=== PATIENT | female | born 1960 | race Caucasian/White ===

== ENCOUNTER 2017-12-29 12:09 | Emergency (ER) | payer OTHER ==
[~2017-12-29] VITALS: Ht 170.2 cm; Wt 56.7 kg
[~2017-12-29 12:09] MED LIST: ALPRAZOLAM0.5 MG PO; BETAPACE80 MG PO; KLONOPIN0.5 MG PO; VIVELLE-DOT1 EAC1 TOP; ZOFRAN ODT4 MG SL
--- OUTSIDE RECORDS SUMMARY | 2017-12-29 12:11 | XMS REPORT ---
Author Author [facility] Address Unknown Phone Unavailable Care Team Providers Care Operator Lights Name Role Phone FADI STILES Unavailable Unavailable Problems This patient has no known problems. Allergies, Adverse Reactions, Alerts This patient has no known allergies or adverse reactions. Medications This patient has no known medications. Results Test Description Test Time Test Comments Text Results Atomic Results Result Comments MAMMOGRAPHY DIGITAL SCR BILAT [place] [address] Patient Name: CHOCO EARLY MR #: [id number] : 1960 Age/Sex: 57/F Req #: [id number] [facility] Physician: Ordered by: FADI STILES MD Report #: [id number] Location: MAMMO Room/Bed: Procedure: MG/MAMMOGRAPHY DIGITAL SCR BILAT Exam Date: 05/08/17 Exam Time: 0946 REPORT STATUS: Signed # [id number] - MGSCRBIL #BILATERAL DIGITAL SCREENING MAMMOGRAM WITH CAD: 2016 Comparison is made to exams dated: 04/06/2016 mammogram, 12/25/2012 mammogram, 12/13/2011 mammogram and 12/06/2011 mammogram - [facility]. Current study contains 4 films. The tissue of both breasts is heterogeneously dense. This may lower the sensitivity of mammography. Current study was also evaluated with a Computer Aided Detection (CAD) system. There are benign calcifications in both breasts. There also is a biopsy clip in the left breast. There is also a scar marker on the left breast. No significant masses, calcifications, or other findings are seen in either breast. There has been no significant interval change. IMPRESSION: BENIGN There is no mammographic evidence of malignancy. A 1 year screening mammogram is recommended. The patient will be notified by letter of the results. Silvana Carrero Jr., D.O. cw/:05/15/2017 08:02:06 Manager Vehicle: Mandy ARTIS(Trey)(M), [facility] letter sent: Compared to Prior B9 Mammogram BI-RADS: 2 Benign Dictated By: SILVANA CARRERO DO 1 COPY TO: FADI STILES MD
== END 2017-12-29 13:13 | disposition home or self-care (01) ==
LOC: FSED 12:09
DX: R10.2 Pelvic and perineal pain (principal); F41.1 Generalized anxiety disorder
CPT/HCPCS: 80048; 99284

== ENCOUNTER → 2018-04-30 | Outpatient (CLI) | payer OTHER | LOC: MAMMO 08:48 | PROVIDERS: ATTEND Obstetrics & Gynecology | DX: Z12.31 Encounter for screening mammogram for malignant neoplasm of breast (principal) | CPT/HCPCS: 77067 ==

== ENCOUNTER → 2018-05-27 | Outpatient (CLI) | payer OTHER ==
--- NOTE | 2018-05-28 09:34 | Diagnostic Imaging Report ---
#[id number] - MGDXLT #UNILATERAL LEFT DIGITAL DIAGNOSTIC MAMMOGRAM WITH SPOT COMPRESSION: 05/27/2018 Comparison is made to exams dated: 04/30/2018 mammogram and 05/08/2017 mammogram - [facility]. Current study contains 3 films. The tissue of the left breast is heterogeneously dense. This may lower the sensitivity of mammography. No significant masses, calcifications, or other findings are seen in the breast. Marker clip and benign calcification again noted. No abnormal density or mass. There has been no significant interval change. IMPRESSION: BENIGN There is no mammographic evidence of malignancy. A 1 year screening mammogram is recommended. The patient will be notified by letter of the results. Joseph Carrero Jr., D.O. cw/:05/27/2018 14:18:58 Route Sales Delivery Driver: Mandy LEONARD)(M), [facility] letter sent: Normal Exam Mammogram BI-RADS: 2 Benign
== END ==
LOC: MAMMO 08:07
PROVIDERS: ATTEND Obstetrics & Gynecology
DX: R92.8 Other abnormal and inconclusive findings on diagnostic imaging of breast (principal)

== ENCOUNTER → 2019-05-06 | Outpatient (CLI) | payer OTHER ==
--- NOTE | 2019-05-13 09:13 | Diagnostic Imaging Report ---
#[id number] - MGSCRBIL #BILATERAL DIGITAL SCREENING MAMMOGRAM WITH CAD: 05/06/2019 CLINICAL: Routine screening. Comparison is made to exams dated: 05/27/2018 mammogram, 04/30/2018 mammogram and 05/08/2017 mammogram - [facility]. Current study contains 5 films. The tissue of both breasts is heterogeneously dense. This may lower the sensitivity of mammography. Current study was also evaluated with a Computer Aided Detection (CAD) system. There are benign calcifications in both breasts. There also is a biopsy clip in the left breast. There is also a scar marker on the left breast. No significant masses, calcifications, or other findings are seen in either breast. IMPRESSION: BENIGN There is no mammographic evidence of malignancy. A 1 year screening mammogram is recommended. The patient will be notified by letter of the results. ELIANA HAAS M.D. ct/penrad:05/12/2019 18:11:44 Web Analytics Specialist: Mandy ARTIS(R)(Brielle), [facility] letter sent: Normal Exam Mammogram BI-RADS: 2 Benign
== END ==
LOC: MAMMO 13:02
PROVIDERS: ATTEND Obstetrics & Gynecology
DX: Z12.31 Encounter for screening mammogram for malignant neoplasm of breast (principal)
CPT/HCPCS: 77067

== ENCOUNTER → 2019-05-14 | Outpatient (CLI) | payer OTHER ==
--- NOTE | 2019-05-15 08:40 | Diagnostic Imaging Report ---
Bone density study Clinical History: Osteoporosis screening Bone mineral density measurement Lumbar spine 1.080 gm/cm2 Femoral neck 0 point a 2 to gm/cm2 Standard deviation from young adult population (T-score) Lumbar spine 0.3 Femoral neck -0.2 Standard deviation for age adjusted population (Z-score) Lumbar spine 1.5 Femoral neck 0.9 Comments: The alignment of lumbar spine and femoral necks are satisfactory. There is no osteoporosis or osteopenia of the lumbar spine and left femoral neck. Complete computer analysis will be sent shortly. Diagnostic criteria for osteoporosis BMD: Bone mineral density Normal: BMD measurement less than one standard deviation from young adult population Osteopenia: BMD measurement between 1 and 2.5 standard deviations Osteoporosis: BMD measurement greater than 2.5 standard deviations Severe osteoporosis: Osteoporosis and one or more fragility fractures Signed by: Dr. David Salazar MD on 05/15/2019 8:37 AM
== END ==
LOC: DX 10:10
PROVIDERS: ATTEND Obstetrics & Gynecology
DX: Z01.419 Encounter for gynecological examination (general) (routine) without abnormal findings (principal)
CPT/HCPCS: 77080

== ENCOUNTER → 2020-05-23 | Outpatient (CLI) | payer OTHER | LOC: MAMMO 13:24 | PROVIDERS: ATTEND Obstetrics & Gynecology | DX: Z12.31 Encounter for screening mammogram for malignant neoplasm of breast (principal) | CPT/HCPCS: 77067 ==

== ENCOUNTER 2020-05-26 13:18 | Emergency (ER) | payer OTHER ==
[~2020-05-26] VITALS: Ht 170.2 cm; Wt 56.7 kg
[2020-05-26] MEDS ORDERED: SODIUM CHLORIDE 0.9% 1000ML 1,000 ML IV STA (13:44)
--- NOTE | 2020-05-26 14:10 | NUR ---
Pt states unhappy with covid swab, whines,"bia." Pt again states unhappy with strep swab, unhappy with flu swabs. All swabs were throughly explained to pt before, during and re educated after collection. Pt was offered warm blanket on arrival and declined; however with ivf, pt request blankets, pt given multiple warm blankets for comfort. Pt also unhappy with iv placement. pt states, "only if you're good you'll be able to get it." [place] to rt upper arm, iv site cleaned and iv placed in one stick straight in without any difficulty or need for repositioning. Pt states again she was unpleased. pt and spouse updated of time frame of testing and expectations from rn. pt and spouse with flat affects and no responses to any information...
[2020-05-26] MEDS ORDERED: SODIUM CHLORIDE 0.9% 1000ML 1,000 ML ONE (14:12)
--- NOTE | 2020-05-26 14:48 | NUR ---
PT POSITIVE FLU B. UPDATED PT AND SPOUSE. SPOUSE CORGIAL AND SPOKE, PT CONTINUED WITH FLAT AFFECT AND DID NOT SPEAK. SERVICE RECOVERY DONE WITHOUT PT DISPOSITION IMPROVEMENT. PT D/C PER MD ORDERS WITH FLU
--- NOTE | 2020-05-26 14:48 | Emergency Department Note ---
History of Present Illnes History of Present Illness Chief Complaint: General Medicine Complaints History of Present Illness This is a 60 year old female Chief Complaint Comment 5 days of weak, flat affect, aaox4. ambulatory. no s/s acute distress. pt moans and whines with speech. pt states, "maybe i should be at a hospital." pt reassured this is a full functioning er. . Historian: Patient, Family Member Arrival Mode: Car Onset (how long ago): day(s) (2) Location: all over Quality: myalgia Radiation: Denies non-radiation, Denies back, Denies neck, Denies extremity, Denies abdomen, Denies periumbilical, Denies flank, Denies proximal, Denies distal, Denies other Severity: moderate Onset quality: gradual Duration (how long): day(s) (1) Timing of current episode: constant Progression: unchanged Chronicity: new Context: Denies recent illness, Denies recent surgery, Denies recent immobilization, Denies recent travel, Denies trauma/injury, Denies new medications, Denies hx of DVT/PE, Denies non-compliance w/ medications, Denies other Relieving factors: none Exacerbating factors: none Associated symptoms: Reports malaise; Denies denies other symptoms, Denies confusion, Denies chest pain, Denies cough, Denies diaphoresis, Denies fever/chills, Denies headaches, Denies loss of appetite, Denies nausea/vomiting, Denies rash, Denies seizure, Denies shortness of breath, Denies syncope, Denies weakness, Denies other Past Medical/Family History Physician Review I have reviewed the patient's past medical and family history. Any updates have been documented here. Past Medical History Recent Fever: No Clinical Suspicion of Infectio: No New/Unexplained Change in Ment: No Past Medical History: Anxiety, Depression, Chronic Back Pain Other Medical History: non specific tachycardia Past Surgical History: Hysterectomy, Lumpectomy Other Surgery: lump ectomy Social History Smoking Cessation: Never Smoker Counseling Performed: No Alcohol Use: None Any Illegal Drug Use: No Other Last Tetanus: unknown Any Pre-Existing Lines (PICC,: No Review of Systems Review of Systems Constitutional: Reports no symptoms EENTM: Reports no symptoms Cardiovascular: Reports no symptoms Respiratory: Reports as per HPI Gastrointestinal: Reports no symptoms Genitourinary: Reports no symptoms Musculoskeletal: Reports no symptoms Integumentary: Reports no symptoms Neurological: Reports as per HPI Psychological: Reports no symptoms Endocrine: Reports no symptoms Hematological/Lymphatic: Reports no symptoms Physical Exam Related Data Allergies: Coded Allergies: lorazepam (Verified Adverse Reaction, Intermediate, CAUSES MORE ANXIETY, 04/04/17) caffeine (Verified Adverse Reaction, Unknown, heart palpitations, 04/04/17) Triage Vital Signs Vital Signs Date Time Temp Pulse Resp B/P (MAP) Pulse Ox O2 Delivery O2 Flow Rate FiO2 05/26/20 13:52 97.5 65 14 154/79 100 Room Air Vital signs reviewed: Yes Physical Exam CONSTITUTIONAL Constitutional: Present well-developed, Present well-nourished HENT HENT: Present normocephalic, Present atraumatic, Present oropharynx clear/moist, Present nose normal, Present erythema HENT L/R: Present left ext ear normal, Present right ext ear normal EYES Eyes: Reports PERRL, Reports conjunctivae normal NECK Neck: Present ROM normal PULMONARY Pulmonary: Present effort normal, Present breath sounds normal CARDIOVASCULAR Cardiovascular: Present regular rhythm, Present heart sounds normal, Present capillary refill normal, Present normal rate GASTROINTESTINAL Abdominal: Present soft, Present nontender, Present bowel sounds normal GENITOURINARY Genitourinary: Present exam deferred SKIN Skin: Present warm, Present dry MUSCULOSKELETAL Musculoskeletal: Present ROM normal NEUROLOGICAL Neurological: Present alert, Present oriented x 3, Present no gross motor or sensory deficits PSYCHOLOGICAL Psychological: Present mood/affect normal, Present judgement normal Results Laboratory Lab results reviewed: Yes Imaging Imaging results reviewed: Yes Assessment & Plan Medical Decision Making MDM STREP FLU Reassessment Reassessment time: 14:47 Reassessment BETTER Assessment & Plan Final Impression: (1) Flu (2) Weakness (3) Anxiety Depart Disposition: HOME, SELF-CARE Last Vital Signs Date Time Temp Pulse Resp B/P (MAP) Pulse Ox O2 Delivery O2 Flow Rate FiO2 05/26/20 13:52 97.5 65 14 154/79 100 Room Air Home Meds Reported Medications Clonazepam (KLONOPIN) 0.5 Mg Tablet, 0.5 MG PO Q8H PRN for ANXIETY 12/11/14 Ondansetron (ZOFRAN ODT) 4 Mg Tab.rapdis, 4 MG SL Q6H PRN for NAUSEA, TAB 4/11/15 Estradiol (VIVELLE-DOT) 1 Each Patch.tdsw, 1 TOP EVERY 4 DAYS 07/22/13 Sotalol Hcl (BETAPACE) 80 Mg Tablet, 40 MG PO BID 07/22/13 Medications in the ED Sodium Chloride 1,000 ml @ 0 mls/hr Q0M STAT IV Last administered on 05/26/20at 14:10; Admin Dose 1,000 MLS/HR; Start 05/26/20 at 13:44; Stop 05/26/20 at 13:47; Status DC Sodium Chloride 1,000 ml @ STK-MED ONCE .ROUTE ; Start 05/26/20 at 14:12; Stop 05/26/20 at 14:08; Status DC HAMIDA SOTO MD May 26, 2020 14:48
--- NOTE | 2020-05-26 19:15 | Diagnostic Imaging Report ---
TECHNIQUE: Frontal view of the chest. INDICATION: ^DYSPNEA ^[id number] ^[id number] COMPARISON: None DISCUSSION: Limited evaluation due to portable technique. Lines and hardware: None Heart and mediastinum: Within normal limits. Lungs and pleura: No focal airspace consolidation. No pleural effusion. No pneumothorax. Soft tissues and bones: No acute abnormality. IMPRESSION: Negative for acute intrathoracic process. Signed by: Thierry Shirley MD on 05/26/2020 2:11 PM
== END 2020-05-26 14:49 | disposition home or self-care (01) ==
LOC: FSED 13:46
DX: J11.1 Influenza due to unidentified influenza virus with other respiratory manifestations (principal); R53.1 Weakness; F41.9 Anxiety disorder, unspecified; M54.9 Dorsalgia, unspecified; G89.29 Other chronic pain
CPT/HCPCS: 71045; 80048; 80076; 81003; 83518; 85025; 87400; 99284; J7030; U0002

== ENCOUNTER → 2020-06-15 | Outpatient (CLI) | payer OTHER ==
--- NOTE | 2020-06-16 08:25 | Diagnostic Imaging Report ---
#[id number] - USBRECOMLT ULTRASOUND OF THE LEFT BREAST : 06/15/2020 Comparison is made to exams dated: 05/23/2020 mammogram, 05/06/2019 mammogram, 05/27/2018 mammogram and 04/30/2018 mammogram - [facility]. Color flow and real-time ultrasound were performed on the left breast. There is a benign 1.4 cm previously biopsied mass in the left breast at 3 o'clock middle depth. This lobulated mass is hypoechoic. This abnormality is not significantly changed. No abnormalities were seen sonographically in the left axilla. There are no new solid or cystic masses identified. IMPRESSION: BENIGN There is no sonographic evidence of malignancy. The 1.4 cm lobulated mass in the left breast is benign. A 1 year screening mammogram is recommended. ELIANA HAAS M.D. ct/:06/15/2020 12:10:02 Gut Dropper: Negin Yip [facility], [facility] letter sent: Normal Exam Ultrasound BI-RADS: 2 Benign
--- NOTE | 2020-06-16 08:25 | Diagnostic Imaging Report ---
#[id number] [facility] : 06/15/2020 Comparison is made to exam dated: 05/23/2020 mammogram - [facility]. Color flow and real-time ultrasound were performed on the right breast. No abnormalities were seen sonographically in the right axilla. There are no solid or cystic masses identified. IMPRESSION: BENIGN There is no sonographic evidence of malignancy. A 1 year screening mammogram is recommended. ELIANA HAAS M.D. ct/penrad:06/15/2020 12:07:42 Rotary Pump Operator: Negin Yip [facility], [facility] letter sent: Normal Exam Ultrasound BI-RADS: 2 Benign
== END ==
LOC: US 07:48
PROVIDERS: ATTEND Obstetrics & Gynecology
DX: R92.2 Inconclusive mammogram (principal)

== ENCOUNTER → 2021-06-05 | Outpatient (CLI) | payer OTHER | LOC: MAMMO 09:10 | PROVIDERS: ATTEND Obstetrics & Gynecology | DX: Z12.31 Encounter for screening mammogram for malignant neoplasm of breast (principal) | CPT/HCPCS: 77067 ==

== ENCOUNTER → 2022-06-05 | Outpatient (CLI) | payer OTHER | LOC: MAMMO 09:35 | PROVIDERS: ATTEND Obstetrics & Gynecology | DX: Z12.31 Encounter for screening mammogram for malignant neoplasm of breast (principal); Z13.820 Encounter for screening for osteoporosis | CPT/HCPCS: 77067; 77080 ==

== ENCOUNTER 2023-01-30 09:57 | Emergency (ER) | payer OTHER ==
[~2023-01-30] VITALS: Ht 170.2 cm; Wt 58.1 kg
[2023-01-30 12:17] VITALS: O2SAT 97
[2023-01-30] MEDS ORDERED: ONDANSETRON ODT4 MG PO (12:21)
== END 2023-01-30 12:31 | disposition home or self-care (01) ==
LOC: FSED 10:03
DX: R31.9 Hematuria, unspecified (principal); N13.2 Hydronephrosis with renal and ureteral calculous obstruction; F41.9 Anxiety disorder, unspecified; M54.9 Dorsalgia, unspecified; G89.29 Other chronic pain
CPT/HCPCS: 74176; 80048; 80076; 81003; 85025; 99284

== ENCOUNTER → 2024-06-22 | Outpatient (REF) | payer OTHER ==
[~2024-06-22] MED LIST changes: +LEVSIN-SL0.125 MG SL; +MUCINEX600 MG PO; +ONDANSETRON ODT4 MG PO
== END ==
LOC: MAMMO 10:37
PROVIDERS: ATTEND Obstetrics & Gynecology
DX: Z12.31 Encounter for screening mammogram for malignant neoplasm of breast (principal)
CPT/HCPCS: 77067

== ENCOUNTER → 2024-07-29 | Outpatient (REF) | payer OTHER | LOC: US 09:15 | PROVIDERS: ATTEND Obstetrics & Gynecology | DX: R92.2 Inconclusive mammogram (principal) ==

== ENCOUNTER → 2025-02-03 | Day surgery (SDC) | payer OTHER ==
[2025-01-28 10:35] LABS: BASOPHILS % 0.3 % (0.0-1.0); HEMATOCRIT 42.1 % (34.2-44.1); HEMOGLOBIN 14.2 g/dL (12.0-16.0); LYMPHOCYTES # (AUTO) 1.7 (1.0-3.2); LYMPHOCYTES % 43.2 % (18.0-39.1); MEAN CORPUSCULAR HEMOGLOBIN 30.7 pg (28-32); MEAN CORPUSCULAR HGB CONC 33.7 g/dL (31-35); MEAN CORPUSCULAR VOLUME 91.1 fL (81-99); MONOCYTES # (AUTO) 0.4 (0.2-0.8); MONOCYTES % 8.8 % (4.4-11.3); NEUTROPHILS # (AUTO) 1.9 (2.1-6.9); NEUTROPHILS % 47.4 % (38.7-80.0); PLATELET COUNT 206 x10e3/uL (140-360); RED BLOOD COUNT 4.62 x10e6/uL (3.6-5.1); WHITE BLOOD COUNT 3.98 x10e3/uL (4.8-10.8)
[~2025-02-03] MED LIST changes: +DEXAMETHASONE SOD PHOS INJ 4 MG/ML SDV ONE; +EPHEDRINE SULFATE INJ 50 MG/ML VIAL ONE; +FENTANYL CITRATE/PF 100MCG/2 ML INJ ONE; +FLUMAZENIL 0.5MG/ 5ML VIAL ONE; +LIDOCAINE HCL 2% LOCAL INJ 5 ML SDV VIAL INJ ONE; +MIDAZOLAM HCL 2 MG/2 ML VIAL ONE; +ONDANSETRON HCL INJ 2MG/ML 2ML 2 MG/ML VIAL ONE; +PROPOFOL IV EMULSION 10 MG/ML 20 ML VIAL ONE; +SCOPOLAMINE 1 MG PATCH ONE; +VIT D3 PO
[2025-02-03] MEDS: SODIUM CHLORIDE 0.9% 1000ML 1,000 ML ONE (07:08)
[2025-02-03] MEDS: CEFTRIAXONE 1 GM VIAL ONE (07:09)
[2025-02-03 08:00] VITALS: TEMP 97.3
[2025-02-03 09:05] VITALS: BP 140/75; PULSE 54; RESP 18; O2SAT 100
== END | disposition home or self-care (01) ==
LOC: OR 05:54
PROVIDERS: ATTEND Urology
DX: N20.0 Calculus of kidney (principal); R31.29 Other microscopic hematuria; N35.92 Unspecified urethral stricture, female
CPT/HCPCS: 36415; 52353; 74018; 85025; C1758; J0696; J1100; J2003; J2250; J2405; J2704; J3010; J7030; 50590

== ENCOUNTER → 2025-05-20 | Outpatient (REF) | payer OTHER ==
[~2025-05-20] MED LIST changes: -DEXAMETHASONE SOD PHOS INJ 4 MG/ML SDV ONE; -EPHEDRINE SULFATE INJ 50 MG/ML VIAL ONE; -FENTANYL CITRATE/PF 100MCG/2 ML INJ ONE; -FLUMAZENIL 0.5MG/ 5ML VIAL ONE; -LIDOCAINE HCL 2% LOCAL INJ 5 ML SDV VIAL INJ ONE; -MIDAZOLAM HCL 2 MG/2 ML VIAL ONE; -ONDANSETRON HCL INJ 2MG/ML 2ML 2 MG/ML VIAL ONE; -PROPOFOL IV EMULSION 10 MG/ML 20 ML VIAL ONE; -SCOPOLAMINE 1 MG PATCH ONE
== END ==
LOC: RAD 08:36
PROVIDERS: ATTEND Urology
DX: N20.0 Calculus of kidney (principal)
CPT/HCPCS: 74018

== ENCOUNTER 2025-06-11 00:20 | Emergency (ER) | payer OTHER ==
[~2025-06-11] VITALS: Ht 172.7 cm; Wt 54.9 kg
[2025-06-11] MEDS: PROMETHAZINE HCL (IM) 25 MG/ML VIAL IM ONE (01:17)
[2025-06-11] MEDS: FAMOTIDINE 20 MG/2 ML VIAL IV STA (01:17)
[2025-06-11] MEDS: SODIUM CHLORIDE 0.9% 1000ML 1,000 ML IV ONE (01:18)
[2025-06-11] MEDS ORDERED: PROMETHAZINE12.5 M1 PO (02:48)
[2025-06-11 02:53] VITALS: PULSE 66; RESP 15; TEMP 98.2
[2025-06-11 03:02] VITALS: BP 116/56; PULSE 66; RESP 15; TEMP 98.2; O2SAT 98
== END 2025-06-11 03:05 | disposition home or self-care (01) ==
LOC: FSED 00:43
DX: F41.9 Anxiety disorder, unspecified (principal); R11.2 Nausea with vomiting, unspecified; M54.9 Dorsalgia, unspecified; G89.29 Other chronic pain; F32.A Depression, unspecified; Z86.79 Personal history of other diseases of the circulatory system; Z87.442 Personal history of urinary calculi
CPT/HCPCS: 80053; 80307; 81003; 85025; 99284; J1308; J2550; J7030

== ENCOUNTER → 2025-06-24 | Outpatient (REF) | payer OTHER ==
[~2025-06-24] MED LIST changes: +PROMETHAZINE12.5 M1 PO
== END ==
LOC: MAMMO 09:14
PROVIDERS: ATTEND Obstetrics & Gynecology
DX: Z12.31 Encounter for screening mammogram for malignant neoplasm of breast (principal)
CPT/HCPCS: 77067